=== PATIENT | male | born 2000 | race African-American/Black ===

== ENCOUNTER 2020-06-07 20:14 | Emergency (ER) | payer SELFPAY ==
[2020-06-07] MEDS ORDERED: Ibuprofen 800 MG TAB ONE (20:25)
[2020-06-07] MEDS ORDERED: Acetaminophen 500 MG TAB ONE (20:25)
[2020-06-08 01:46] LABS: SARS-CoV-2 MS2 Positive; SARS-CoV-2 N Gene Positive; SARS-CoV-2 S Gene Positive; SARS-CoV-2 by NAA DETECTED (NotDetected); SARS-CoV-2 orf1ab Positive
== END 2020-06-07 21:40 | disposition home or self-care (01) ==
LOC: ERS 20:14
DX: U07.1 COVID-19 (principal); F17.210 Nicotine dependence, cigarettes, uncomplicated
CPT/HCPCS: 87081; 87430; 87635; 87804; 99283; U0003